=== PATIENT | female | born 1965 | race Caucasian/White ===

== ENCOUNTER 2019-01-25 14:54 | Emergency (ER) | payer BC ==
[~2019-01-25] VITALS: Ht 162.6 cm; Wt 90.9 kg
[2019-01-25] MEDS ORDERED: SYNTHROID25 MCG (15:09)
[2019-01-25 19:27] LABS: BASOPHILS 0.3 % (0-2); EOSINOPHILS 0.1 % (0-7); HEMOGLOBIN 13.2 g/dL (12-16); IMMATURE GRANULOCYTES 0.2 % (0-5); LYMPHOCYTES 7.9 % (15-50); MCH 26.6 pg (26.0-34.0); MCHC 33.8 g/dL (31.0-37.0); MCV 78.5 fL (80.0-100.0); MEAN PLATELET VOLUME 10.9 fL (7.4-10.4); MONOCYTES 7.4 % (2-11); NEUTROPHILS 84.1 % (40-80); PLATELET COUNT 159 10x3/uL (130-400); RBC 4.97 10x6/uL (4.00-5.40); RDW 16.5 % (11.5-14.5); WBC 11.3 10x3/uL (4.8-10.8)
[2019-01-25 19:58] LABS: ALBUMIN 3.4 g/dL (3.4-5.0); ALKALINE PHOSPHATASE 86 U/L (46-116); ALT (SGPT) 30 U/L (10-68); AMYLASE - SERUM 110 U/L (25-115); BILIRUBIN - TOTAL 0.44 mg/dL (0.2-1.3); CALC OSMOLALITY 274 mosm/kg (275-300); CALCIUM 9.1 mg/dL (8.5-10.1); CARBON DIOXIDE 25.9 mmol/L (21.0-32.0); CHLORIDE - SERUM 103 mmol/L (98-107); CREATININE - SERUM 0.9 mg/dL (0.6-1.3); GLUCOSE 105 mg/dL (74-106); LIPASE 145 U/L (73-393); POTASSIUM - SERUM 4.4 mmol/L (3.5-5.1); PROTEIN - SERUM 7.5 g/dL (6.4-8.2); SODIUM 138 mmol/L (136-145); TROPONIN-I < 0.017 ng/mL (0.000-0.060); UREA NITROGEN 10 mg/dL (7-18); eGFR NON AFRICAN AMERICAN 69 mL/min (90-120)
[2019-01-25 20:23] LABS: APPEARANCE CLEAR (CLEAR); BILIRUBIN NEGATIVE (NEGATIVE); COLOR YELLOW (YELLOW); GLUCOSE NEGATIVE (NEGATIVE); KETONE SMALL mg/dL (NEGATIVE); NITRITE NEGATIVE (NEGATIVE); PROTEIN NEGATIVE (NEGATIVE); UROBILINOGEN NORMAL (NORMAL)
[2019-01-25] MEDS ORDERED: CATAPRES0.1 MG PO (22:15)
== END 2019-01-25 22:25 | disposition home or self-care (01) ==
LOC: D.ER 14:54
PROVIDERS: Emergency Medicine
DX: R10.31 Right lower quadrant pain (principal); I10 Essential (primary) hypertension

== ENCOUNTER 2019-03-15 08:00 | Outpatient (CLI) | payer BC ==
[2019-01-25 15:06] VITALS: BMI 34.4
[~2019-03-15 08:00] MED LIST: CATAPRES0.1 MG PO; SYNTHROID25 MCG
== END 2019-03-15 23:59 | disposition home or self-care (01) ==
LOC: D.MAMMO 08:00
PROVIDERS: ATTEND Nurse Practitioner
DX: Z12.31 Encounter for screening mammogram for malignant neoplasm of breast (principal)

== ENCOUNTER 2019-04-06 11:15 | Day surgery (SDC) | payer BC, MEDICAID ==
[2019-04-05 10:22] LABS: HEMATOCRIT 35.8 % (36.0-48.0); HEMOGLOBIN 11.4 g/dL (12-16); MCH 25.6 pg (26.0-34.0); MCHC 31.8 g/dL (31.0-37.0); MCV 80.4 fL (80.0-100.0); MEAN PLATELET VOLUME 11.1 fL (7.4-10.4); RBC 4.45 10x6/uL (4.00-5.40); WBC 4.1 10x3/uL (4.8-10.8)
[~2019-04-06] VITALS: Ht 162.6 cm; Wt 83.9 kg
[~2019-04-06 11:15] MED LIST changes: +ELIQUIS5 MG; +NORVASC2.5 MG PO
[2019-04-06 11:40] VITALS: BP 149/91; Ht 162.6 cm; Wt 83.9 kg
[2019-04-06] MEDS ORDERED: HYDROCODON-ACE1 EAC7 PO (17:03)
--- NOTE | 2019-04-06 18:30 | NUR ---
LEFT HAND PIV DC'D WITH TIP INTACT. DISCHARGE INSTRUCTIONS REVIEWED WITH PATIENT AND FAMILY. FAMILY ASSISTING PATIENT TO DRESS IN PERSONAL CLOTHING
== END 2019-04-06 18:50 | disposition home or self-care (01) ==
LOC: D.OPS 11:15 → D.PAN 13:30 → D.OPS 13:30
PROVIDERS: Anesthesiology; ATTEND Podiatrist Foot & Ankle Surgery
DX: M20.11 Hallux valgus (acquired), right foot (principal); M21.611 Bunion of right foot; M20.41 Other hammer toe(s) (acquired), right foot; Z01.812 Encounter for preprocedural laboratory examination

== ENCOUNTER 2019-04-18 09:00 | Outpatient (CLI) | payer BC ==
[2019-04-06 11:40] VITALS: BMI 31.8
[~2019-04-18 09:00] MED LIST changes: +HYDROCODON-ACE1 EAC7 PO
== END 2019-04-18 09:30 | disposition home or self-care (01) ==
LOC: D.MAMMO 09:00
PROVIDERS: ATTEND Nurse Practitioner
DX: R92.8 Other abnormal and inconclusive findings on diagnostic imaging of breast (principal)

== ENCOUNTER → 2019-04-20 12:58 | Outpatient (CLI) | payer BC ==
[2019-04-06 11:40] VITALS: BMI 31.8
[2019-04-20 13:44] LABS: BASOPHILS 0.9 % (0-2); EOSINOPHILS 2.6 % (0-7); HEMATOCRIT 36.4 % (36.0-48.0); HEMOGLOBIN 11.9 g/dL (12-16); IMMATURE GRANULOCYTES 0.2 % (0-5); LYMPHOCYTES 32.1 % (15-50); MCH 25.3 pg (26.0-34.0); MCHC 32.7 g/dL (31.0-37.0); MCV 77.3 fL (80.0-100.0); MONOCYTES 8.3 % (2-11); NEUTROPHILS 55.9 % (40-80); RBC 4.71 10x6/uL (4.00-5.40); RDW 16.6 % (11.5-14.5); WBC 4.7 10x3/uL (4.8-10.8)
[2019-04-20 13:50] LABS: ANION GAP 11.8 mmol/L (8-16); CALCIUM 8.8 mg/dL (8.5-10.1); CARBON DIOXIDE 26.2 mmol/L (21.0-32.0); CREATININE - SERUM 0.9 mg/dL (0.6-1.3)
[2019-04-20 13:51] LABS: PLATELET COUNT 252 10x3/uL (130-400)
== END | disposition home or self-care (01) ==
LOC: D.LAB 12:58
PROVIDERS: ATTEND Internal Medicine Pulmonary Disease
DX: Z87.01 Personal history of pneumonia (recurrent) (principal)

== ENCOUNTER → 2019-06-01 14:39 | Outpatient (CLI) | payer BC, OTHER ==
[2019-04-06 11:40] VITALS: BMI 31.8
[2019-06-01 16:03] LABS: EOSINOPHILS 3.6 % (0-7); HEMATOCRIT 25.2 % (36.0-48.0); HEMOGLOBIN 7.9 g/dL (12-16); IMMATURE GRANULOCYTES 0.2 % (0-5); LYMPHOCYTES 37.8 % (15-50); MCH 22.5 pg (26.0-34.0); MCHC 31.3 g/dL (31.0-37.0); MCV 71.8 fL (80.0-100.0); MEAN PLATELET VOLUME 9.1 fL (7.4-10.4); MONOCYTES 9.5 % (2-11); NEUTROPHILS 47.9 % (40-80); PLATELET COUNT 273 10x3/uL (130-400); RBC 3.51 10x6/uL (4.00-5.40); RDW 17.3 % (11.5-14.5)
[2019-06-01 16:31] LABS: CALC OSMOLALITY 279 mosm/kg (275-300); CALCIUM 8.6 mg/dL (8.5-10.1); CARBON DIOXIDE 26.4 mmol/L (21.0-32.0); CHLORIDE - SERUM 106 mmol/L (98-107); CREATININE - SERUM 0.8 mg/dL (0.6-1.3); GLUCOSE 83 mg/dL (74-106); POTASSIUM - SERUM 3.7 mmol/L (3.5-5.1); SODIUM 141 mmol/L (136-145); UREA NITROGEN 13 mg/dL (7-18); eGFR NON AFRICAN AMERICAN 79 mL/min (90-120)
== END | disposition home or self-care (01) ==
LOC: D.RT 09:30 → D.CT 10:00 → D.RT 14:39
PROVIDERS: ATTEND Internal Medicine Pulmonary Disease
DX: R93.89 Abnormal findings on diagnostic imaging of other specified body structures (principal); J18.9 Pneumonia, unspecified organism

== ENCOUNTER 2020-04-03 10:43 | Observation (INO) | payer BC, OTHER ==
[~2020-04-03] VITALS: Ht 160 cm; Wt 46.9 kg
[2020-04-03] VITALS (11 sets, daily range): BP systolic 136–158; BP diastolic 60–92; BMI 34.8
[2020-04-03 11:33] LABS: EOSINOPHILS 4.7 % (0-7); HEMATOCRIT 23.6 % (36.0-48.0); IMMATURE GRANULOCYTES 0.2 % (0-5); LYMPHOCYTES 31.9 % (15-50); MCHC 27.1 g/dL (31.0-37.0); MCV 64.1 fL (80.0-100.0); MEAN PLATELET VOLUME 9.1 fL (7.4-10.4); MONOCYTES 9.3 % (2-11); NEUTROPHILS 51.9 % (40-80); PLATELET COUNT 274 10x3/uL (130-400); RBC 3.68 10x6/uL (4.00-5.40); RDW 18.1 % (11.5-14.5); WBC 4.9 10x3/uL (4.8-10.8)
[2020-04-03 11:41] LABS: INR 1.48 (0.85-1.17); PROTIME 17.8 SECONDS (11.6-15.0)
[2020-04-03 11:42] LABS: ANION GAP 9.2 mmol/L (8-16); CALCIUM 9.1 mg/dL (8.5-10.1); CARBON DIOXIDE 26.9 mmol/L (21.0-32.0); CREATININE - SERUM 0.9 mg/dL (0.6-1.3); POTASSIUM - SERUM 4.1 mmol/L (3.5-5.1)
[2020-04-03 11:48] LABS: ALBUMIN 3.7 g/dL (3.4-5.0); BILIRUBIN - TOTAL 0.34 mg/dL (0.2-1.3); PROTEIN - SERUM 7.6 g/dL (6.4-8.2)
[2020-04-03 11:49] LABS: HEMOGLOBIN 6.4 g/dL (12-16); MCH 17.4 pg (26.0-34.0)
[2020-04-03 11:59] LABS: BILIRUBIN NEGATIVE (NEGATIVE); GLUCOSE NEGATIVE (NEGATIVE); KETONE NEGATIVE (NEGATIVE); NITRITE NEGATIVE (NEGATIVE); UROBILINOGEN NORMAL (NORMAL)
--- NOTE | 2020-04-03 16:06 | NUR ---
DE TO ROOM 1257 VIA W/C FROM ER. PT AWAKE AND ALERT. VERBAL RESPONSES APPRO TO QUESTIONS. PT STANDS TO GET INTO BED. UNIT OF PRBC DONOR #[phone] B+ INFUSING AT THIS TIME AND APPRO 40CC REMAINING IN BAG. PLADCED ON PUMP AND INFUSING AT 200CC/HR. VS DONE.
--- NOTE | 2020-04-03 16:16 | NUR ---
REQUESTING ICE CHIPS- GIVEN.
--- NOTE | 2020-04-03 16:30 | NUR ---
PT DENIES ANY BLEEDING AT THIS TIME. STATES THAT LAST BLEEDING WAS APPRO 2 WEEKS AGO. FIRST UNIT PRBC FINISHED INFUSING- LINE BEING FLUSHED WITH NS.PT WATCHING TV.
--- NOTE | 2020-04-03 16:43 | NUR ---
dr dumas calls unit- report given- dr dumas states that he will see pt in the am.
--- NOTE | 2020-04-03 16:50 | NUR ---
UP TO BATHROOM TO VOID- VOIDED 200CC IN CONTAINER. NO OBVIOUS BLOOD NOTED.
--- NOTE | 2020-04-03 17:31 | NUR ---
2ND UNIT PRBC B+ DONOR NUMBER [id number] HUNG THROUGH NEW BLOOD TUBING PRIMED WITH NS AND INFUSION STARTED AT 75CC/HR PER PUMP.
--- NOTE | 2020-04-03 17:58 | NUR ---
TRANSFUSION RATES INCREASED TO 175CC/HR.
--- NOTE | 2020-04-03 17:58 | NUR ---
WATCHING TV- NO REQUESTS.
--- NOTE | 2020-04-03 18:17 | NUR ---
UP TO BATHROOM TO VOID.
--- NOTE | 2020-04-03 18:45 | NUR ---
SITTING UP IN BED- EATING AHA DIET.
--- NOTE | 2020-04-03 18:50 | NUR ---
NOTIFIED MONITOR STATION OF MD REQUEST FOR TELEMENTRY.
--- NOTE | 2020-04-03 19:00 | NUR ---
REPORT TO PM SHIFT.
[2020-04-03 19:04] LABS: CKMB 1.7 U/L (0.0-3.6); CREATINE KINASE 406 UL (21-215); MAGNESIUM - SERUM 2.2 mg/dL (1.8-2.4); TROPONIN-I < 0.017 ng/mL (0.000-0.060)
--- NOTE | 2020-04-03 19:12 | NUR ---
NURSE PRACTIONER FROM DR ARNOLD OFFICE TO ROOM TO SEE PT.
--- NOTE | 2020-04-03 19:24 | NUR ---
RN TO PT BEDSIDE FOR ROUNDING, PT DENIES ANY PAIN AT THIS TIME. SECOND BAG OF PRBCs INFUSING AT THIS TIME. PT DENIES ANY DIZZINESS AT THIS TIME. BED IN LOWEST POSITION, SIDE RAILS UPX2, CALL LIGHT IN REACH.
--- NOTE | 2020-04-03 21:22 | NUR ---
RN TO PT BEDSIDE, TELEMETRY APPLIED TO PT PER MD ORDERS, TELEMETRY BOX # [phone]
[2020-04-04 00:52] VITALS: BP 130/59
--- NOTE | 2020-04-04 00:55 | NUR ---
RN TO PT BEDSIDE FOR ROUNDING, PT DENIES ANY NEEDS AT THIS TIME, PT DENIES ANY VAGINAL BLEEDING AT THIS TIME, VSS. BED IN LOWEST POSITION, CALL LIGHT IN REACH, SIDE RAILS UPX2.
--- NOTE | 2020-04-04 02:06 | NUR ---
RN TO PT BEDSIDE FOR ROUNDING, PT SLEEPING AT THIS TIME.
[2020-04-04 04:37] VITALS: BP 138/82
--- NOTE | 2020-04-04 04:37 | NUR ---
RN TO PT BEDSIDE FOR ROUNDING, VSS. PT DENIES ANY PAIN/DISCOMFORT AT THIS TIME, PT REQUESTS THAT RN BRING ITEMS FOR HER TO TAKE A SHOWER. RN PROVIDED PT WITH CLEAN GOWN, BRIEF, AND OTHER ITEMS FOR HER SHOWER. PT STATES SHE WILL SHOWER IN 1 HOUR. PT DENIES ANY OTHER NEEDS AT THIS TIME. BED IN LOWEST POSITION, CALL LIGHT IN REACH, SIDE RAILS UPX2.
[2020-04-04 06:14] LABS: ALBUMIN 3.5 g/dL (3.4-5.0); ANION GAP 12.6 mmol/L (8-16); BILIRUBIN - TOTAL 0.36 mg/dL (0.2-1.3); CALCIUM 8.6 mg/dL (8.5-10.1); CARBON DIOXIDE 23.8 mmol/L (21.0-32.0); MAGNESIUM - SERUM 2.3 mg/dL (1.8-2.4); POTASSIUM - SERUM 4.4 mmol/L (3.5-5.1); PROTEIN - SERUM 7.3 g/dL (6.4-8.2)
[2020-04-04 06:17] LABS: BASOPHILS 1.2 % (0-2); IMMATURE GRANULOCYTES 0.2 % (0-5); LYMPHOCYTES 25.7 % (15-50); MCH 20.7 pg (26.0-34.0); MCHC 29.9 g/dL (31.0-37.0); MEAN PLATELET VOLUME 9.7 fL (7.4-10.4); MONOCYTES 10.5 % (2-11); NEUTROPHILS 58.4 % (40-80); PLATELET COUNT 276 10x3/uL (130-400); RBC 4.29 10x6/uL (4.00-5.40); RDW 22.8 % (11.5-14.5); WBC 5.8 10x3/uL (4.8-10.8)
[2020-04-04 06:22] LABS: HEMATOCRIT 29.8 % (36.0-48.0); HEMOGLOBIN 8.9 g/dL (12-16); MCV 69.5 fL (80.0-100.0)
--- NOTE | 2020-04-04 06:48 | NUR ---
THIS RN ATTEMPTED TO CALL IN A CRITICAL AMYLASE TO THE PRIMARY CARE, SHE WAS TOLD TO CALL OUR OB DOCTORS WITH THE RESULTS. RESULTS CALLED INTO ON-CALL DOCTOR, ON-CALL DOCTOR SAID RESULTS SHOULD ALSO BE CALLED INTO PRIMARY.
--- NOTE | 2020-04-04 07:10 | NUR ---
BEDSIDE SHIFT REPORT FROM PM SHIFT.
[2020-04-04 07:49] VITALS: BP 137/84
--- NOTE | 2020-04-04 07:49 | NUR ---
THIS RN TO ROOM FOR SHIFT ASSESSMENT. PT SITTING UP IN BED, TALKING WITH FAMILY MEMBER. PT STATES SHE FEELS MUCH BETTER AFTER BLOOD TRANFUSION, BUT STATES SHE DIDN'T SLEEP WELL SO IS A LITTLE TIRED AND HAS A HEADACHE. PT RATES PAIN WITH PINEDA 5/10. PT STATES SHE SHOWERED THIS MORNING AT APPROX 0500 AND IS HOPING TO GO HOME TODAY. PT DENIES ANY NAUSEA, VAGINAL BLEEDING, ABD PAIN OR TENDERNESS TO PALPATION. VSS, SHIFT ASSESSMENT COMPLETE, SEE FLOWSHEET FOR DOCUMENTATION. RIGHT AC PIV IS C/D/I. PT REQUESTING IV OUT, INFORMED WILL WAIT FOR MD TO ROUND AND UPDATE POC BEFORE REMOVING. UNDERSTANDING VERBALIZED. DISCUSSED HOME MEDS, WILL CHECK WITH MD UPON ROUNDING IF NEED RESTARTED TODAY. PT ADMIN PRN TYLENOL ORDERED FOR PAIN WITH PINEDA, SEE EMAR FOR DOC. FRESH ICE WATER AND CUP OF ICE PROVIDED PER REQUEST. FANS DELIVERS BREAKFAST TRAY TO PT, VERIFIES IS NO PORK ON TRAY REQUESTED. WHITE BOARD UPDATED AND NEXT MED TIME AVAILABILE FOR TYLENOL ON BOARD. PT DENIES QUESTIONS OR ANY NEEDS. SRUx2, CL IN REACH. WILL CONT TO MONITOR.
--- NOTE | 2020-04-04 09:30 | NUR ---
DR RICARDO TO ROOM FOR ROUNDING. STATES PT IS CLEARED FROM [employer] RELATIONS MANAGER STANDPOINT AND CARE IS TO BE MANAGED BY ADMITTING PHYSICIAN.
--- NOTE | 2020-04-04 09:35 | NUR ---
ATTEMPTED TO PAGE DR ARNOLD, UNABLE TO ENTER EXTENSION, PAGER NOT WORKING. PRACTITIONER PAGER OBTAINED FROM ER DIRECTORY AND PAGED. AWAITING CALLBACK.
[2020-04-04 10:02] VITALS: Ht 160 cm; Wt 46.9 kg
--- NOTE | 2020-04-04 10:21 | NUR ---
DR ARNOLD'S OFFICE PHONED AGAIN AND NOTIFIED PAGER IS NOT WORKING AND NEED TO REPORT LABS. OFFICE STAFF STATES THEY WILL TEXT HIM TO CALL THE UNIT.
--- NOTE | 2020-04-04 11:06 | NUR ---
MOLD DESIGN ENGINEER CONTACTED AND NOTIFIED UNABLE TO REPORT CRITICAL LAB VALUE TO DR ARNOLD. DOCTOR'S EXCHANGE NUMBER PROVIDED AND CALLED, STATE THEY WILL PAGE DR ARNOLD TO CALL UNIT FOR REPORT.
--- NOTE | 2020-04-04 11:13 | NUR ---
DR ARNOLD PHONES UNIT, REPORT GIVEN ON CRITICAL AMYLASE OF 370, UP FROM 275 YESTERDAY. ORDER RECEIVED TO CONSULT GI, AND TO ENSURE DAILY CBC'S ARE DRAWN WELL DAILY AMYLASE AND LIPASE LABS. STATES WILL ROUND ON PT SHORTLY.
--- NOTE | 2020-04-04 11:37 | NUR ---
DR GARCIA PAGED WITH CALLBACK SHORTLY AFTER, REPORT GIVEN ON INCREASING AMYLASE AND LIPASE. STATES THEY WILL ROUND ON PATIENT SHORTLY.
--- NOTE | 2020-04-04 11:45 | NUR ---
PT UPDATED ON POC. DENIES PAIN OR NEEDS. SITTING UP IN BED TALKING WITH FAMILY MEMBER. WILL CONT TO MONITOR.
--- NOTE | 2020-04-04 12:34 | NUR ---
DR ARNOLD AND WEST TO ROOM FOR ROUNDING. PLAN TO D/C TO HOME IF CLEARED BY GI.
[2020-04-04 12:35] VITALS: BP 147/89
--- NOTE | 2020-04-04 13:45 | NUR ---
ATTEMPTED TO PAGE DR ARNOLD, PAGER NOT WORKING. WEST WITH DR ARNOLD PAGED TO NOTIFY OF BP'S BP AND SEE IF HOME MEDS NEED RESTARTED.
--- NOTE | 2020-04-04 14:31 | NUR ---
THIS RN TO ROOM FOR PT CHECK. PT SITTING UP IN BED, WATCHING TV AND PLAYING ON PHONE. PT DENIES PAIN OR PINEDA. SPRITE AND CRACKERS PROVIDED PER REQUEST. TOILET PAPER AND PAPER TOWELS IN BR TO BE REFILLED PER REQUEST. PT DENIES FURTHER NEEDS. SRGris2, CL IN REACH. WILL CONT TO MONITOR.
--- NOTE | 2020-04-04 16:05 | NUR ---
DR GARCIA TO PT ROOM FOR ROUNDING, CLEARS PT FOR DISCHARGE TO HOME.
--- NOTE | 2020-04-04 16:18 | NUR ---
RIGHT AC PIV REMOVED WITHOUT INCIDENT, BANDAID APPLIED. RN PROCEDURE NOTIFIED OF ORDER FOR DISCHARGE AND WILL BE REMOVING MONITOR. MONITOR OFF. PT UP TO DRESS FOR D/C TO HOME.
--- NOTE | 2020-04-04 16:35 | NUR ---
DISCHARGE TEACHING DONE AND F/U NETTA DATE AND TIME WITH DR RICARDO GIVEN. CLINIC PHONE NUMBERS PROVIDED FOR PT TO SCHEDULE FURTHER FOLLOW UP APPS. PT VERBALIZES UNDERSTANDING AND DENIES QUESTIONS, SIGNS CHART COPIES. FANS DELIVERS DINNER TRAY AT THIS TIME, PT STATES SHE WOULD LIKE TO EAT DINNER BEFORE DISCHARGING HOME. PT ASSISTED IN SETTING UP DINNER TRAY, INSTRUCTED TO CALL CSR TECHNICIAN LIGHT WHEN FINISHED EATING AND READY FOR W/C OUT.
--- NOTE | 2020-04-04 17:15 | NUR ---
PT FINISHED EATING DINNER, PRESSES CALL LIGHT STATING SHE IS READY TO GO HOME. THIS RN TO ROOM WITH W/C. PT TAKEN OUT VIA W/C TO PRIVATE VEHICLE, FAMILY MEMBER AWAITING TO DRIVE HER HOME.
== END 2020-04-04 17:15 | disposition home or self-care (01) ==
LOC: D.ER 10:43 → OBSVTIME 12:17 → D.LD 12:17 → D.ER 15:12 → D.SDCHOLD 04-04 08:30 → D.LD 04-04 08:30
PROVIDERS: Family Medicine; ADMIT Family Medicine Adult Medicine; ATTEND Family Medicine Adult Medicine
DX: D62 Acute posthemorrhagic anemia (principal); N92.6 Irregular menstruation, unspecified; E03.9 Hypothyroidism, unspecified; I10 Essential (primary) hypertension; R53.1 Weakness

== ENCOUNTER → 2020-06-06 09:31 | Outpatient (CLI) | payer BC, OTHER ==
[2020-04-04 10:02] VITALS: BMI 34.8
[~2020-06-06 09:31] MED LIST changes: -SYNTHROID25 MCG; +SYNTHROID25 MCG PO
--- NOTE | 2020-06-06 10:30 | NUR ---
RECEIVED AMB FROM CLINIC FOR PRBC TRANSFUSION PER DR RICARDO. PT DENIES QUESTIONS OR CONCERNS ABOUT PLAN OF CARE FOR TODAY.
--- NOTE | 2020-06-06 10:45 | NUR ---
IV TO LEFT AC X 3 ATTEMPTS WITH 18GAUGE CATH, BLOOD DRAW COMPLETED, FLUSHED EASILY WITH 5ML NS. DIETARY NOTIFIED FOR YARELI ISIDRO PER PT REQUEST. T&S TAKEN TO LAB.
--- NOTE | 2020-06-06 11:50 | NUR ---
REGULAR DIET SERVED PER DIETARY.
--- NOTE | 2020-06-06 14:45 | NUR ---
1ST UNIT PRBC VERIFIED AT BEDSIDE WITH Eva MCKEON RN. VSS AND PT DENIES CONCERNS AT THIS TIME.
--- NOTE | 2020-06-06 15:57 | NUR ---
LARGE ICE WATER, JOSE CRACKERS AND PEANUT BUTTER PROVIDED REQUESTED. DENIES PAIN OR DISCOMFORT AND VOICES NO OTHER NEEDS AT THIS TIME.
--- NOTE | 2020-06-06 16:20 | NUR ---
1ST UNIT PRBC COMPLETED AND FLUSHED WITH 250ML NS. PT DENIES PAIN OR DISCOMFORT.
--- NOTE | 2020-06-06 17:00 | NUR ---
2ND UNIT PRBC VERIFIED AT BEDSIDE WITH Eva MCKEON RN. TRANSFUSION STARTED. DIETARY CALLED FOR PT DINNER TRAY. CALL LIGHT IN REACH.
--- NOTE | 2020-06-06 18:15 | NUR ---
2ND UNIT COMPLETED, 250NS FLUSH IN PROGRESS.
--- NOTE | 2020-06-06 18:58 | NUR ---
FLUSH COMPLETED, IV DISCONTINUED AND REMOVED WITH CATH INTACT. PRINTED POST TRANSFUSION INSTRUCTIONS PRINTED AND GONE OVER WITH PT BY Karen JACK RN.
--- NOTE | 2020-06-06 19:00 | NUR ---
PT DENIES DIZZINESS OR LIGHTHEADED, RATES PAIN AT 0/10. DENIES WHEELCHAIR, AMB OFF UNIT WITH FAMILY, NO SIGNS OF DISTRESS NOTED.
== END | disposition home or self-care (01) ==
LOC: D.LDO 09:31
PROVIDERS: ATTEND Obstetrics & Gynecology
DX: O26.899 Other specified pregnancy related conditions, unspecified trimester (principal); Z3A.00 Weeks of gestation of pregnancy not specified

== ENCOUNTER → 2020-06-07 10:34 | Outpatient (CLI) | payer BC, OTHER ==
[2020-04-04 10:02] VITALS: BMI 34.8
== END | disposition home or self-care (01) ==
LOC: D.LABREF 10:34
PROVIDERS: ATTEND Obstetrics & Gynecology
DX: Z11.59 Encounter for screening for other viral diseases (principal)

== ENCOUNTER 2020-06-10 05:29 | Day surgery (SDC) | payer BC, OTHER ==
[2020-06-07 11:14] LABS: BASOPHILS 0.8 % (0-2); EOSINOPHILS 3.7 % (0-7); HEMATOCRIT 32.7 % (36.0-48.0); HEMOGLOBIN 9.9 g/dL (12-16); IMMATURE GRANULOCYTES 0.3 % (0-5); LYMPHOCYTES 24.5 % (15-50); MCH 21.6 pg (26.0-34.0); MCHC 30.3 g/dL (31.0-37.0); MCV 71.2 fL (80.0-100.0); MEAN PLATELET VOLUME 9.4 fL (7.4-10.4); MONOCYTES 11.1 % (2-11); NEUTROPHILS 59.6 % (40-80); PLATELET COUNT 325 10x3/uL (130-400); RBC 4.59 10x6/uL (4.00-5.40); RDW 24.9 % (11.5-14.5); WBC 6.5 10x3/uL (4.8-10.8)
[~2020-06-10] VITALS: Ht 160 cm; Wt 93.9 kg
[2020-06-10 06:08] VITALS: BP 148/87; Ht 160 cm; Wt 93.9 kg
[2020-06-10 06:21] LABS: HCG URINE NEGATIVE (NEGATIVE)
--- NOTE | 2020-06-10 09:07 | NUR ---
0900 TIME FRAME AND CRITERIA FOR RELEASE GIVEN. FAMILY AT BEDSIDE.
--- NOTE | 2020-06-26 06:20 | OP ---
PATIENT NAME: THERESE MORALES MEDICAL RECORD: [id number] :65 LOCATION:D.OPS ADMISSION DATE: SURGEON: CODY GRUBBS MD DATE OF OPERATION: 06/10/2020 PREOPERATIVE DIAGNOSES: 1. Dysfunctional uterine bleeding. 2. Anemia. POSTOPERATIVE DIAGNOSES: 1. Dysfunctional uterine bleeding. 2. Anemia. 3. Uterine polyps. PROCEDURES PERFORMED: 1. Hysteroscopy. 2. Dilation and curettage. 3. NovaSure ablation. SURGEON: Cody Grubbs MD ANESTHESIOLOGIST: Dr. Goss. ANESTHETIC: General. FINDINGS: Uterus measures 6 x 3.25 cm. Multiple polyps were visualized. Vaginal vault was unremarkable. SPECIMEN: Endometrial curettings. SPECIMEN DISPOSITION: Pathology. ESTIMATED BLOOD LOSS: Minimal. FLUIDS: 800 cc of lactated Ringer's. URINE OUTPUT: Quantity sufficient void prior to this procedure. COMPLICATIONS: None. DRAINS: None. INDICATIONS: The patient is a 54-year-old female, perimenopausal with heavy irregular bleeding. The patient has been counseled for conservative therapy and desires more aggressive management. The patient is consented for dilation and curettage and a uterine ablation. DESCRIPTION OF PROCEDURE: After informed consent was assured, the patient was taken to the operating room where anesthetic was obtained. The patient was then prepped and draped in the usual sterile fashion after being placed in Erlin stirrups. A speculum was introduced in the vagina and the cervix visualized, grasped with a single tooth tenaculum and dilated to accommodate a 4-mm hysteroscope. This was passed under direct visualization into the uterine cavity with the above findings. Cervix was now further dilated and curettage performed until good cry was obtained throughout. Specimen was removed and sent OPERATIVE REPORT [id number] THERESE MORALES to pathology. At this point, the uterus dimensions were measured, 6 cm length was determined by the provided uterine sound. The NovaSure device was now inspected and found to be in proper working order. This device was now inserted into the uterine cavity and the array released. The proper width was determined and entered into the NovaSure generator. After a successful test sequence therapy was concluded after a minute and a half. The NovaSure device was now removed. Single tooth tenaculum, which was used to hold the cervix during this procedure was removed with adequate hemostasis noted. Sponge, lap, and needle counts correct times 2. The patient was awakened and taken down from the Erlin stirrups and sent to the recovery area in stable condition. TRANSINT:[id number] Voice Confirmation ID: [id number] DOCUMENT ID: [id number] CODY GRUBBS MD at 0620 CC: [id number] DICTATION DATE: 06/25/20 0843 TAPE TRANSFERRER: 06/25/20 0926 [facility] [place] 06/10/20 [place] [id number]
== END 2020-06-10 10:20 | disposition home or self-care (01) ==
LOC: D.OPS 05:29 → D.PAN 08:00 → D.OPS 08:00 → D.PAN 09:10 → D.OPS 10:00
PROVIDERS: ATTEND Obstetrics & Gynecology
DX: N93.8 Other specified abnormal uterine and vaginal bleeding (principal); D64.9 Anemia, unspecified; N84.0 Polyp of corpus uteri; E55.9 Vitamin D deficiency, unspecified; R06.00 Dyspnea, unspecified; Z78.0 Asymptomatic menopausal state